=== PATIENT | male | born 1970 | race African-American/Black ===

== ENCOUNTER 2021-06-24 13:27 | Inpatient (IN) | payer MEDICARE ==
[~2021-06-24] VITALS: Ht 180.3 cm; Wt 104.4 kg
[2021-06-24 14:04] LABS: BASOPHILS % 0.9 % (0.0-2.0); HEMATOCRIT. 37.3 % (42.0-52.0); LYMPHOCYTES % 23.6 % (20.0-50.0); MEAN CORPUSCULAR HEMOGLOBIN 30.7 pg (28.0-32.0); MEAN CORPUSCULAR VOLUME 87.8 fL (80.0-94.0); MEAN PLATELET VOLUME 8.6 fl (7.4-10.4); NEUTROPHILS % 65.5 % (40.0-76.0); PLATELET 181 x1000/uL (130-400); RED BLOOD CELL COUNT 4.25 mill/uL (4.7-6.1); RED CELL DISTRIBUTION WIDTH 14.8 % (11.6-14.6)
[2021-06-24 14:10] LABS: CHLORIDE 98 mEq/L (98-107)
[2021-06-24] MEDS ORDERED: NITROGLYCERIN 0.4MG TABLET SL SL PRN (14:45)
[2021-06-24] MEDS ORDERED: ASPIRIN 81MG TABLET PO ONE (14:45)
[2021-06-24] MEDS ORDERED: SODIUM POLYSTYRENE SULFONATE 15 G/60 ML BOT PO ONE (17:45)
[2021-06-24 22:13] VITALS: BP 127/73
[2021-06-24 22:15] VITALS: BP 127/73
[2021-06-25] VITALS (12 sets, daily range): BP systolic 101–151; BP diastolic 51–89
[2021-06-25] MEDS ORDERED: ACETAMINOPHEN 325MG TABLET PO PRN ×2 (00:15→12:45)
[2021-06-25] MEDS ORDERED: HYDROCODONE/ACETAMINOPHEN 5/325MG TABLET PO PRN (00:15)
[2021-06-25] MEDS ORDERED: DEXTROSE 50% WATER 50ML SYRINGE IV PRN (00:45)
[2021-06-25] MEDS ORDERED: NITROGLYCERIN 0.4MG TABLET SL SL PRN (01:00)
[2021-06-25] MEDS: BLOOD SUGAR DIAGNOSTIC STRIP TEST SCH ×4 (06:04→21:00)
[2021-06-25] MEDS: INSULIN LISPRO 100 UNITS/ML SUBCUT SCH ×4 (07:20→22:25)
[2021-06-25 07:56] LABS: BASOPHILS % 0.8 % (0.0-2.0); EOSINOPHILS % 5.8 % (0.0-5.0); HEMATOCRIT. 35.5 % (42.0-52.0); LYMPHOCYTES % 30.3 % (20.0-50.0); MEAN CORPUSCULAR HEMOGLOBIN 29.8 pg (28.0-32.0); MEAN PLATELET VOLUME 8.9 fl (7.4-10.4); MONOCYTES % 6.5 % (2.0-8.0); NEUTROPHILS % 56.6 % (40.0-76.0); PLATELET 174 x1000/uL (130-400); RED BLOOD CELL COUNT 4.04 mill/uL (4.7-6.1); RED CELL DISTRIBUTION WIDTH 15.1 % (11.6-14.6)
[2021-06-25 08:19] LABS: CHLORIDE 101 mEq/L (98-107)
[2021-06-25 08:28] LABS: LDL CHOLESTEROL 60 mg/dL (5-100)
[2021-06-25 08:34] LABS: PHOSPHORUS 5.9 mg/dL (2.5-4.9)
[2021-06-25 08:41] LABS: HDL CHOLESTEROL 34 mg/dL (40-59)
[2021-06-25] MEDS: METOPROLOL TARTRATE 100MG TABLET PO SCH ×2 (09:00→22:26)
[2021-06-25] MEDS: LOSARTAN POTASSIUM 50 MG TABLET PO SCH (09:00)
[2021-06-25] MEDS: ASPIRIN 81MG TABLET PO SCH (10:08)
[2021-06-25] MEDS: FOLIC ACID/VITAMIN B COMP W-C TABLET PO SCH (10:08)
[2021-06-25] MEDS: CALCIUM ACETATE 667MG CAPSULE PO SCH ×3 (10:08→17:00)
[2021-06-25] MEDS: ISOSORBIDE MONONITRATE 30MG TABLET SR 24HR PO SCH (11:02)
[2021-06-25] MEDS: INSULIN GLARGINE UD 100 UNITS/ML SYR SUBCUT SCH ×2 (11:03→22:25)
[2021-06-25] MEDS ORDERED: NALOXONE HCL 0.4MG/ML VIAL IV PRN (12:45)
[2021-06-25 14:13] LABS: HEPATITIS B SURFACE ANTIGEN NEGATIVE
[2021-06-25] MEDS ORDERED: ATORVASTATIN CALCIUM 40MG TABLET PO SCH (21:00)
[2021-06-26] VITALS (11 sets, daily range): BP systolic 95–167; BP diastolic 48–92
[2021-06-26] MEDS ORDERED: CALC667C MT (03:44)
[2021-06-26] MEDS ORDERED: ESCI20TA MT (03:44)
[2021-06-26] MEDS ORDERED: ASPI-1497 MT (03:44)
[2021-06-26] MEDS ORDERED: METO100T16 MT (03:44)
[2021-06-26] MEDS ORDERED: ATOR-2 MT (03:44)
[2021-06-26] MEDS ORDERED: HYDR-4135 MT ×2 (03:44)
[2021-06-26] MEDS ORDERED: IRBE300T17 MT (03:44)
[2021-06-26] MEDS: BLOOD SUGAR DIAGNOSTIC STRIP TEST SCH ×2 (06:39→12:46)
[2021-06-26] MEDS: INSULIN LISPRO 100 UNITS/ML SUBCUT SCH ×2 (06:51→12:46)
[2021-06-26 07:39] LABS: EOSINOPHILS % 5.4 % (0.0-5.0); HEMATOCRIT. 37.6 % (42.0-52.0); HEMOGLOBIN. 13.1 g/dL (14.0-18.0); LYMPHOCYTES % 29.4 % (20.0-50.0); MEAN CORPUSCULAR VOLUME 86.1 fL (80.0-94.0); MEAN PLATELET VOLUME 8.8 fl (7.4-10.4); MONOCYTES % 6.6 % (2.0-8.0); NEUTROPHILS % 57.6 % (40.0-76.0); PLATELET 192 x1000/uL (130-400); RED BLOOD CELL COUNT 4.37 mill/uL (4.7-6.1); RED CELL DISTRIBUTION WIDTH 15.2 % (11.6-14.6)
[2021-06-26] MEDS: CALCIUM ACETATE 667MG CAPSULE PO SCH ×2 (08:46→12:51)
[2021-06-26] MEDS: FOLIC ACID/VITAMIN B COMP W-C TABLET PO SCH (08:46)
[2021-06-26] MEDS: METOPROLOL TARTRATE 100MG TABLET PO SCH (08:46)
[2021-06-26] MEDS: ASPIRIN 81MG TABLET PO SCH (08:46)
[2021-06-26] MEDS: ISOSORBIDE MONONITRATE 30MG TABLET SR 24HR PO SCH (08:47)
[2021-06-26] MEDS: LOSARTAN POTASSIUM 50 MG TABLET PO SCH (08:47)
[2021-06-26] MEDS: INSULIN GLARGINE UD 100 UNITS/ML SYR SUBCUT SCH (12:51)
== END 2021-06-26 10:04 | disposition home or self-care (01) | DRG 947 ==
LOC: ER 13:27 → 3WST 18:40 → EDBEDREQTM 18:47 → EDBEDREQ 18:47 → ENRESERV 21:10
PROVIDERS: ADMIT Internal Medicine; ATTEND Internal Medicine
PROC: 5A1D70Z Performance of Urinary Filtration, Intermittent, Less than 6 Hours Per Day (ICD-10-PCS; principal; 2021-06-25)
DX: G89.18 Other acute postprocedural pain (principal); N18.6 End stage renal disease; N25.81 Secondary hyperparathyroidism of renal origin; I12.0 Hypertensive chronic kidney disease with stage 5 chronic kidney disease or end stage renal disease; R07.89 Other chest pain; E11.22 Type 2 diabetes mellitus with diabetic chronic kidney disease; E78.5 Hyperlipidemia, unspecified; D64.9 Anemia, unspecified; E66.01 Morbid (severe) obesity due to excess calories; Z20.822 Contact with and (suspected) exposure to COVID-19; E78.00 Pure hypercholesterolemia, unspecified; E87.5 Hyperkalemia; Z82.49 Family history of ischemic heart disease and other diseases of the circulatory system; I25.2 Old myocardial infarction; Z86.73 Personal history of transient ischemic attack (TIA), and cerebral infarction without residual deficits; Z95.1 Presence of aortocoronary bypass graft; Z99.2 Dependence on renal dialysis; Z71.3 Dietary counseling and surveillance; Z68.32 Body mass index [BMI] 32.0-32.9, adult
CPT/HCPCS: 36415; 71045; 80048; 80053; 80061; 82962; 83036; 83735; 83880; 84100; 84484; 85025; 86705; 86709; 86803; 87340; 87426; 93005; 93306; 99285; J1815